=== PATIENT | male | born 1985 | race Caucasian/White ===

== ENCOUNTER 2022-07-30 08:34 | Emergency (ER) | payer OTHER | END 2022-07-30 11:15 | disposition home or self-care (01) | LOC: MERGE 08:34 → JD.ED 08:34 | DX: L05.91 Pilonidal cyst without abscess (principal); I10 Essential (primary) hypertension; F17.210 Nicotine dependence, cigarettes, uncomplicated; Z91.018 Allergy to other foods | CPT/HCPCS: 36415; 80053; 85007; 85027; 99283 ==

== ENCOUNTER 2022-08-01 08:15 | Emergency (ER) | payer OTHER ==
[2022-08-31 08:47] LABS: ESTIMATED GFR 89 mL/min (>60)
== END 2022-08-01 13:05 | disposition home or self-care (01) ==
LOC: JD.ED 08:15
DX: L05.91 Pilonidal cyst without abscess (principal)
CPT/HCPCS: 36415; 80053; 83735; 85025; 86140; 96372; 99283